=== PATIENT | male | born 1965 | race Caucasian/White ===

== ENCOUNTER 2020-01-27 20:33 | Emergency (ER) | payer OTHER ==
[~2020-01-27] VITALS: Ht 170.2 cm; Wt 80.3 kg
[2020-01-27] MEDS ORDERED: ATACAND4 MG PO (20:44)
== END 2020-01-27 22:29 | disposition home or self-care (01) ==
LOC: ER 20:33
DX: R50.9 Fever, unspecified (principal); Z03.818 Encounter for observation for suspected exposure to other biological agents ruled out

== ENCOUNTER → 2020-03-31 | Outpatient (CLI) | payer OTHER ==
[~2020-03-31] MED LIST: ATACAND4 MG PO
== END | disposition home or self-care (01) ==
LOC: PPH VACUNA 09:00
DX: Z23 Encounter for immunization (principal)